=== PATIENT | female | born 1985 | race Caucasian/White ===

== ENCOUNTER 2019-09-02 09:42 | Outpatient (CLI) | payer BC ==
--- NOTE | 2019-09-02 10:53 | CT ---
CT abdomen with and without contrast CT pelvis with and without contrast: (CT urogram) DATE: 09/02/2019 HISTORY: 34-year-old female with ICD-10: "N 28.1 complex renal cyst. R 35.0 frequency of micturition" COMPARISON: No prior studies of any modality, of any body part available on [facility] PACS. TECHNIQUE: IV contrast: 99 mL [id number]. Precontrast scan, nephrographic/venous phase scan, and pyelographic/excretory phase scan, of entire a bdomen and pelvis. FINDINGS: There are no renal, ureteral, or bladder calculi. There is an approximately 2.2 x 2.2 x 1.7 cm cystic, nonexophytic lesion in the upper pole parenchyma of the left kidney with attenuation values of 3.7, 3.7, and 0.6 Hounsfield units, in the noncontrast, nephrographic phase, and excretory phase scans, respectively. No associated calcificatio ns. No enhancing solid component. The rest of the left nephrogram and the entire right nephrogram, are homogeneous and normal. No hydro nephrosis. No obvious gross abnormality identified involving the partially filled urinary bladder. 2 x 1.5 x 1.5 cm right ovarian cyst. No free fluid in the pelvic cavity or abdominal cavity. No signs of colonic diverticulitis. No small bowel dilation or pneumoperitoneum. Appendix not identified. Normal abdominal aorta, pancreas, adrenals, and spleen. In the liver, there is a tiny 0.5 cm focal round hypodensity in hepatic segment 8, too small to defin itively characterize. The rest of the liver is normal. Lung bases are grossly clear. No major pathology of lumbar spine. IMPRESSION: 2.2 cm benign simple cyst in the upper pole of the left kidney.
== END 2019-09-02 09:43 | disposition home or self-care (01) ==
LOC: SCSCT 09:42
PROVIDERS: ATTEND Urology
DX: N28.1 Cyst of kidney, acquired (principal); R35.0 Frequency of micturition; Z87.442 Personal history of urinary calculi
CPT/HCPCS: 74178